=== PATIENT | female | born 1950 | race Asian ===

== ENCOUNTER 2016-12-01 12:21 | Outpatient (CLI) | payer OTHER ==
[~2016-12-01 12:21] MED LIST: B-125000 MC1 SL; BYSTOLIC5 MG OR; CENTRUM SILVER OR; CLARITIN10 M1 OR; CYCL10TA35 PO; GLIP5TAB65 PO; IBUP800T30 PO; KOMBIGLYZE1 TA1 OR; LEVEMIR SC; LORAZEPAM1 MG PO; LYRICA50 MG OR; MECLIZINE25 MG PO; METF500T PO; NOVOLOG100 MG/ML SC; PRAVACHOL20 MG PO; RISP2TAB2 PO; TAMO10TA PO; TRIA37.541 PO
[2016-12-01 12:47] LABS: SODIUM 140 mmol/L (136-145)
== END 2016-12-01 13:30 | disposition home or self-care (01) ==
LOC: LABW 12:21
PROVIDERS: Internal Medicine
DX: E11.610 Type 2 diabetes mellitus with diabetic neuropathic arthropathy (principal)
CPT/HCPCS: 36415; 80053; 80061; 81000; 83036

== ENCOUNTER 2017-02-24 12:00 | Emergency (ER) | payer OTHER ==
[~2017-02-24] VITALS: Ht 165.1 cm; Wt 98.4 kg
[2017-02-24] MEDS ORDERED: BYSTOLIC10 MG PO (12:22)
[2017-02-24] MEDS ORDERED: JANUVIA100 MG PO (12:23)
[2017-02-24] MEDS ORDERED: GLIP10TA55 PO (12:23)
[2017-02-24] MEDS ORDERED: LOVASTATIN10 MG OR (12:24)
[2017-02-24 13:14] LABS: PLATELET COUNT 213 K/uL (152-353)
[2017-02-24 13:29] LABS: POTASSIUM 3.3 mmol/L (3.6-5.2); SODIUM 140 mmol/L (136-145)
[2017-02-24 13:37] LABS: PARTIAL THROMBOPLASTIN TIME 26.7 SECONDS (24.5-33.6)
[2017-02-24 19:05] VITALS: BP 159/93; TEMP 97.8
== END 2017-02-24 19:05 | disposition home or self-care (01) ==
LOC: ED 12:00
PROVIDERS: Emergency Medicine
DX: E80.6 Other disorders of bilirubin metabolism (principal); R16.0 Hepatomegaly, not elsewhere classified; R17 Unspecified jaundice; K86.89 Other specified diseases of pancreas; M89.9 Disorder of bone, unspecified; E11.65 Type 2 diabetes mellitus with hyperglycemia
CPT/HCPCS: 36415; 80053; 80329; 81000; 82140; 82550; 83880; 84484; 85027; 85610; 85730; 93005; 96360; 99284; Q9963

== ENCOUNTER 2017-05-20 04:39 | Emergency (ER) | payer OTHER ==
[~2017-05-20] VITALS: Ht 165.1 cm; Wt 87.1 kg
[~2017-05-20 04:39] MED LIST changes: +BYSTOLIC10 MG PO; +GLIP10TA55 PO; +JANUVIA100 MG PO; +LOVASTATIN10 MG OR
[2017-05-20] MEDS ORDERED: CALDOLOR800 MG/8 M IV (04:45)
[2017-05-20 06:26] LABS: PLATELET COUNT 148 K/uL (152-353)
[2017-05-20 06:40] LABS: POTASSIUM 3.3 mmol/L (3.6-5.2); SODIUM 134 mmol/L (136-145)
[2017-05-20 12:46] VITALS: BP 143/81; TEMP 98.8
== END 2017-05-20 12:45 | disposition home or self-care (01) ==
LOC: ED 04:39
PROVIDERS: Specialist
DX: R50.9 Fever, unspecified (principal); K85.90 Acute pancreatitis without necrosis or infection, unspecified; C25.7 Malignant neoplasm of other parts of pancreas; E11.65 Type 2 diabetes mellitus with hyperglycemia; E83.42 Hypomagnesemia; E86.9 Volume depletion, unspecified
CPT/HCPCS: 36415; 80053; 81000; 81002; 82150; 83690; 83735; 84100; 85027; 87040; 87077; 87185; 87186; 87205; 96361; 96365; 96366; 96376; 99284; J1885; J3475

== ENCOUNTER 2017-06-22 18:30 | Outpatient (CLI) | payer OTHER ==
[~2017-06-22 18:30] MED LIST changes: +CALDOLOR800 MG/8 M IV
[2017-06-22 18:56] LABS: PLATELET COUNT 240 K/uL (152-353)
[2017-06-22 19:08] LABS: POTASSIUM 3.2 mmol/L (3.6-5.2); SODIUM 138 mmol/L (136-145)
== END 2017-06-22 19:39 | disposition home or self-care (01) ==
LOC: LAB 18:30
PROVIDERS: Internal Medicine
DX: E11.9 Type 2 diabetes mellitus without complications (principal)
CPT/HCPCS: 36415; 80053; 85027

== ENCOUNTER 2019-01-30 15:54 | Outpatient (CLI) | payer OTHER | END 2019-01-30 19:49 | disposition home or self-care (01) | LOC: RAD 15:54 | DX: R06.02 Shortness of breath (principal) ==

== ENCOUNTER 2019-01-31 11:43 | Outpatient (CLI) | payer OTHER ==
[2019-01-31 12:06] LABS: PLATELET COUNT 243 K/uL (152-353)
[2019-01-31 12:35] LABS: POTASSIUM 3.5 mmol/L (3.6-5.2)
== END 2019-01-31 23:12 | disposition home or self-care (01) ==
LOC: LAB 11:43
PROVIDERS: Internal Medicine
DX: S09.8XXD Other specified injuries of head, subsequent encounter (principal); R06.02 Shortness of breath; C25.7 Malignant neoplasm of other parts of pancreas; Z79.899 Other long term (current) drug therapy
CPT/HCPCS: 36415; 80053; 84439; 84443; 85027

== ENCOUNTER 2019-02-05 10:26 | Outpatient (CLI) | payer OTHER | END 2019-02-05 22:47 | disposition home or self-care (01) | LOC: MRI 10:26 | DX: R06.02 Shortness of breath (principal); S09.8XXD Other specified injuries of head, subsequent encounter ==

== ENCOUNTER 2019-03-22 11:25 | Inpatient (IN) | payer OTHER ==
[2019-03-22] VITALS (13 sets, daily range): BP systolic 73–103; BP diastolic 35–78; TEMP 96.7–98; Ht 165.1 cm; Wt 66.3 kg
[~2019-03-22] VITALS: Ht 165.1 cm; Wt 66.3 kg
[2019-03-22 12:17] LABS: PLATELET COUNT 329 K/uL (152-353)
[2019-03-22 12:37] LABS: POTASSIUM 5.8 mmol/L (3.6-5.2); SODIUM 129 mmol/L (136-145)
[2019-03-22 13:52] LABS: PARTIAL THROMBOPLASTIN TIME 43.9 SECONDS (24.5-33.6)
[2019-03-23] VITALS: BP 93/64; TEMP 96.5
[2019-03-23] MEDS ORDERED: ELIQUIS5 MG PO ×2 (03:36)
[2019-03-23] MEDS ORDERED: DOCU100C10 PO ×2 (03:38)
[2019-03-23 04:00] VITALS: BP 75/45; TEMP 96.8
[2019-03-23 05:26] LABS: PLATELET COUNT 277 K/uL (152-353)
[2019-03-23 05:44] LABS: POTASSIUM 5.1 mmol/L (3.6-5.2)
[2019-03-23 08:00] VITALS: BP 116/84
== END 2019-03-23 12:45 | disposition short-term general hospital (02) | DRG 682 ==
LOC: ED 11:25 → MED/SURG 14:36
PROVIDERS: Family Medicine; ADMIT Student in an Organized Health Care Education/Training Program
DX: N17.8 Other acute kidney failure (principal); E43 Unspecified severe protein-calorie malnutrition; E87.2 Acidosis; E87.1 Hypo-osmolality and hyponatremia; R18.8 Other ascites; C78.89 Secondary malignant neoplasm of other digestive organs; E86.0 Dehydration; E83.41 Hypermagnesemia; I10 Essential (primary) hypertension; E78.00 Pure hypercholesterolemia, unspecified; D50.8 Other iron deficiency anemias; E11.9 Type 2 diabetes mellitus without complications; L89.302 Pressure ulcer of unspecified buttock, stage 2; R62.7 Adult failure to thrive; R53.1 Weakness; C50.219 Malignant neoplasm of upper-inner quadrant of unspecified female breast; I95.89 Other hypotension
CPT/HCPCS: 36591; 51702; 80053; 81000; 82272; 83605; 83690; 83735; 83880; 84443; 84484; 85027; 85610; 85730; 86850; 86900; 86901; 87040; 87070; 87076; 87077; 87186; 87205; 93005; 96360; 96361; 96365; 96375; 99284; J2543; J7060

== ENCOUNTER 2019-03-23 12:48 | Outpatient (CLI) | payer OTHER ==
[~2019-03-23 12:48] MED LIST changes: +DOCU100C10 PO; +ELIQUIS5 MG PO
== END 2019-03-23 13:31 | disposition short-term general hospital (02) ==
LOC: AMB 12:48
DX: R10.84 Generalized abdominal pain (principal); M79.89 Other specified soft tissue disorders; E16.1 Other hypoglycemia; C80.1 Malignant (primary) neoplasm, unspecified
CPT/HCPCS: A0425; A0429